=== PATIENT | male | born 1935 | race Caucasian/White ===

== ENCOUNTER 2019-07-20 11:07 | Inpatient (IN) | payer MEDICARE, OTHER ==
[~2019-07-20] VITALS: Ht 177.8 cm; Wt 71.5 kg
[2019-07-20] MEDS ORDERED: ASPIRIN 81 MG CHEW TAB PO ONE (11:45)
[2019-07-20 12:10] LABS: BASOPHILS # (AUTO) 0.1 (0.0-0.1); BASOPHILS % 0.3 % (0.0-1.0); EOSINOPHILS # (AUTO) 0.3 (0.0-0.4); EOSINOPHILS % 1.6 % (0.0-6.0); HEMATOCRIT 44.2 % (38.2-49.6); LYMPHOCYTES # (AUTO) 1.1 (1.0-3.2); LYMPHOCYTES % 5.1 % (18.0-39.1); MEAN CORPUSCULAR HEMOGLOBIN 30.9 pg (28-32); MEAN CORPUSCULAR HGB CONC 33.9 g/dL (31-35); MEAN CORPUSCULAR VOLUME 91.1 fL (81-99); MONOCYTES # (AUTO) 1.6 (0.2-0.8); MONOCYTES % 7.2 % (4.4-11.3); NEUTROPHILS # (AUTO) 18.4 (2.1-6.9); NEUTROPHILS % 85.3 % (38.7-80.0); PLATELET COUNT 149 x10e3/uL (140-360); RED BLOOD COUNT 4.85 x10e6/uL (4.3-5.7); RED CELL DISTRIBUTION WIDTH 13.6 % (11.7-14.4)
--- NOTE | 2019-07-20 12:26 | NUR ---
BLADDER SCAN PERFORMED, RESULTS ARE GREATER THAN 999 mL, ER MD aware and given order to change patients ernst catheter.
[2019-07-20 12:35] LABS: ALANINE AMINOTRANSFERASE 18 IU/L (0-55); ALBUMIN 3.5 g/dL (3.5-5.0); ALBUMIN/GLOBULIN RATIO 1.1 (0.8-2.0); ALKALINE PHOSPHATASE 63 IU/L (40-150); ANION GAP 14.9 mmol/L (8-16); BLOOD UREA NITROGEN 48 mg/dL (7-26); BUN/CREATININE RATIO 13 (6-25); CALCIUM 8.5 mg/dL (8.4-10.2); CARBON DIOXIDE 24 mmol/L (22-29); CHLORIDE 99 mmol/L (98-107); CREATINE KINASE 128 IU/L (30-200); CREATININE, SERUM 3.69 mg/dL (0.72-1.25); EST GLOMERULAR FILTRATION RATE 16 ML/MIN (60-); GLUCOSE 123 mg/dL (74-118); POTASSIUM 4.9 mmol/L (3.5-5.1); SODIUM 133 mmol/L (136-145)
[2019-07-20 13:11] LABS: BILIRUBIN,URINE NEGATIVE (NEGATIVE); CLARITY,URINE CLOUDY (CLEAR); COLOR,URINE YELLOW (YELLOW); KETONES,URINE NEGATIVE (NEGATIVE); LEUKOCYTE ESTERASE ,URINE LARGE (NEGATIVE); NITRITE,URINE POSITIVE (NEGATIVE); PROTEIN,URINE DIPSTICK 1+ (NEGATIVE); URINE UROBILINOGEN 0.2 mg/dL (0.2 - 1)
[2019-07-20 13:18] LABS: LIPASE 46 U/L (8-78)
--- NOTE | 2019-07-20 14:06 | NUR ---
Hernandez catheter bag drained again. Output 400 mL.
--- NOTE | 2019-07-20 14:13 | Diagnostic Imaging Report ---
EXAM: CT Abdomen and Pelvis WITHOUT intravenous contrast INDICATION: Diffuse abdominal pain COMPARISON: None. TECHNIQUE: Abdomen and pelvis were scanned utilizing a multidetector helical scanner from the lung base to the pubic symphysis without administration of IV contrast. Coronal and sagittal reformations were obtained. IV CONTRAST: None ORAL CONTRAST: Water COMPLICATIONS: None RADIATION DOSE: Total DLP: 381 mGy*cm Dose modulation, iterative reconstruction, and/or weight based adjustment of the mA/kV was utilized to reduce the radiation dose to as low as reasonably achievable. FINDINGS: LOWER THORAX: Moderate hiatal hernia. HEPATOBILIARY: No focal liver lesions. 1.7 cm calcified gallstone at the gallbladder neck. No CT evidence of cholecystitis. SPLEEN: No spinal megaly. 1.5 cm cystic lesion of the medial spleen. PANCREAS: No focal masses or ductal dilatation. ADRENALS: No adrenal nodules. KIDNEYS/URETERS: No hydronephrosis. 2 mm left lower pole nonobstructive renal calculus. Numerous bilateral renal cysts measure up to 5.3 cm on the right and 3.0 cm on the left. PELVIC ORGANS/BLADDER: Hernandez catheter in the bladder. PERITONEUM / RETROPERITONEUM: No free air or fluid. LYMPH NODES: No lymphadenopathy. VESSELS: Moderate atherosclerotic calcifications of the nonaneurysmal abdominal aorta and major branches. GI TRACT: Diverticulosis without CT evidence of diverticulitis. No abnormal bowel thickening. No bowel obstruction. BONES AND SOFT TISSUES: No acute osseous injury. No suspicious lytic or blastic lesions. IMPRESSION: Cholelithiasis without CT evidence of cholecystitis. Diverticulosis without CT evidence of diverticulitis. 2 mm left lower pole nonobstructive renal calculus. Numerous bilateral renal cysts. Signed by: Silas Ramos MD on 07/20/2019 2:10 PM
[2019-07-20] MEDS ORDERED: ONDANSETRON HCL INJ 2MG/ML 2ML 2 MG/ML VIAL IV PRN (15:00)
[2019-07-20] MEDS ORDERED: MORPHINE SULFATE 2 MG/ML SYR 1ML IV PRN (15:00)
[2019-07-20 15:04] LABS: BACTERIA,URINE MODERATE /HPF; WBC,URINE (MAN) >50 /HPF (0-5)
[2019-07-20] MEDS: PIPER-TAZ 3.375 GM 50 ML IV SCH ×2 (15:14→23:02)
--- NOTE | 2019-07-20 15:22 | NUR ---
ernst catheter drained. Output of 425.
[2019-07-20] MEDS ORDERED: MORPHINE SULFATE INJ 4 MG/ML INJ 1ML IV PRN (15:30)
--- OUTSIDE RECORDS SUMMARY | 2019-07-20 18:16 | XMS REPORT ---
Author Author [facility] t Organization [facility] Address Unknown Phone Unavailable Care Team Providers Care Tugboat Pilot Name Role Phone WILLIAM SPENSER Unavailable Unavailable MELLISSA SMITH Unavailable Unavailable Maranda SAUCEDO Unavailable Unavailable JOSE WORRELL Unavailable Unavailable WERO REBOLLEDO Unavailable Unavailable Problems This patient has no known problems. Allergies, Adverse Reactions, Alerts This patient has no known allergies or adverse reactions. Medications This patient has no known medications. Results Test Description Test Time Test Comments Text Results Atomic Results Result Comments CT ABDOMEN/PELVIS WO 2019-07-20 14:05:00 [facility] [address] [place] [id number] Patient Name: NATHALIA DELEON MR #: [id number] : 1935 Age/Sex: 84/M Req #: [id number] Adm Physician: Ordered by: SPENSER THOMAS DO Report #: [id number] Location: ER Room/Bed: Procedure: [id number] CT/CT ABDOMEN/PELVIS WO Exam Date: 07/20/19 Exam Time: 1330 REPORT STATUS: Signed EXAM: CT Abdomen and Pelvis WITHOUT intravenous contrast INDICATION: Diffuse abdominal pain COMPARISON: None. TECHNIQUE: Abdomen and pelvis were scanned utilizing a multidetector helical scanner from the lung base to the pubic symphysis without admi nistration of IV contrast. Coronal and sagittal reformations were obtained. IV CONTRAST: None ORAL CONTRAST: Water COMPLICATIONS: None RADIATION DOSE: Total DLP: 381 mGy*cm Dose modulation, iterative reconstruction, and/or weight based adjustment of the mA/kV was utilized to reduce the radiation dose to as low as reasonably achievable. FINDINGS: LOWER THORAX: Moderate hiatal hernia. HEPATOBILIARY: No focal liver lesions. 1.7 cm calcified gallstone at the gallbladder neck. No CT evidence of cholecystitis. SPLEEN: No spinal megaly. 1.5 cm cystic lesion of the medial spleen. PANCREAS: No focal masses or ductal dilatation. ADRENALS: No adrenal nodules. KIDNEYS/URETERS: No hydronephrosis. 2 mm left lower pole nonobstructive renal calculus. Numerous bilateral renal cysts measure up to 5.3 cm on the right and 3.0 cm on the left. PELVIC ORGANS/BLADDER: Hernandez catheter in the bladder. PERITONEUM / RETROPERITONEUM : No free air or fluid. LYMPH NODES: No lymphadenopathy. VESSELS: Moderate atherosclerotic calcifications of the nonaneurysmal abdominal aorta and major branches. GI TRACT: Diverticulosis without CT evidence of diverticulitis. No abnormal bowel thickening. No bowel obstruction. BONES AND SOFT TISSUES: No acute osseous injury. No suspicious lytic or blastic lesions. IMPRESSION: Cholelithiasis without CT evidence of cholecystitis. Diverticulosis without CT evidence of diverticulitis. 2 mm left lower pole nonobstructive renal calculus. Numerous bilateral renal cysts. Signed by: Mikey Ramos MD on 07/20/2019 2:10 PM Dictated By: MIKEY RAMOS MD 1410 Transcribed By: RACHEL on 07/20/19 1410 COPY TO: SPENSER THOMAS DO [facility] 2019-06-29 12:41:00 Glucose (test code = GLU) 134 mg/dl 75-110 BUN (test code = BUN) 22.0 mg/dl 6.0-17.0 Creatinine (test code = CREA) 1.4 mg/dl 0.4-1.2 Sodium (test code = NA) 138 mmol/l 137-145 Potassium (test code = K) 4.0 mmol/l 3.5-5.0 Chloride (test code = CL) 106 mmol/l 98-107 CO2 (test code = CO2) 27 mmol/l 22-30 Calcium (test code = CALC) 8.4 mg/dl 8.4-10.2 T Protein (test code = TP) 6.6 gm/dl 5.1-8.7 Albumin (test code = ALB) 3.6 gm/dl 3.5-4.6 A/G Ratio (test code = AGRAT) 1.2 % 1.1-2.2 AST (SGOT) (test code = AST) 11 U/L 11-36 ALT (SGPT) (test code = ALT) 20 U/L 11-40 Alkaline Phos (test code = ALKP) 59 U/L 47-114 Total Bilirubin (test code = TBIL) 0.4 mg/dl 0.2-1.2 Globulin (test code = GLOBU) 3.0 gm/dl 2.3-3.5 Calcium, Corrected (test code = CALCCORR) 8.7 mg/dl 8.4-10 .2 Various formulas exist for corrected serum calcium results, each yielding different values. This corrected result was based on the formula: Corrected Calcium = SerumCalcium + [0.8 * ( 4 - SerumAlbumin)] EGFR if (test code = EGFRAA) >60 mL/min/1.73m\\S \\2 EGFR if Non- (test code = EGFRNA) 51 mL/min/1.73 m\\S\\2 Estimated Glomerular Filtration Rate (eGFR) Reference Intervals Decision Points for 18 years and older and average body mass: >= 60 Does not exclude kidney disease. 30 - 59 Suggests moderate chronic kidney disease and indicates the need for further investigation including assessment of proteinuria and cardiovascular factors. < 30 Usually indicates a need for referral for assessment and management of chronic kidney failure. PRO-BNP(B-Type Natriuretic Peptide)2019-06-29 12:41:00* Test Item Value Reference Range Comments Pro-BNP(B-Peptide) (test code = PROBNP) 137 pg/ml 0-450 TROPONIN-I [id number] 12:41:00* Test Item Value Reference Range Comments Troponin-I (test code = TROP) <0.015 ng/ml 0.000-0.034 Th e 99th Percentile URL is 0.045 ng/mL for the Siemens Stephens Troponin I. The Joint Society of Cardiology/[place] [employer] (ESC/ACC) and the National Academy of Clinical Biochemistry Standards of Laboratory Practices (NACB) recommends that the diagnosis of AMI includes the presence of clinical history suggestive of Acute Coronary Syndrome (ACS) and a maximum concentration of cardiac troponin exceeding the 99th percentile of a normal reference population [upper reference limit (URL)] on at least one occasion during the first 24 hours after the clinical event. CBC WITH AUTO [id number] 11:53:00* Test Item Value Reference Range Comments WBC (test code = WBC) 8.25 10\\S\\3/ul 4.80-10.80 RBC (test code = RBC) 4.61 10\\S\\6/ul 4.70-6.10 Hemoglobin (test code = HGB) 14.3 gm/dl 14.0-18.0 Hematocrit (test code = HCT) 42.6 % 42.0-50.0 MCV (test code = MCV) 92.4 fL 80.0-94.0 MCH (test code = MCH) 31.0 pg 27.0-31.0 MCHC (test code = MCHC) 33.6 gm/dl 33.0-37.0 RDW (test code = RDWVC) 13.3 % 11.5-14.5 Platelet (test code = PLT) 167 10\\S\\3/ul 130-400 MPV (test code = MPV) 10.8 fL 7.4-10.4 "NOT MEASU RED" RESULTS ARE DISPLAYED WHEN THE INSTRUMENT HAS A SUPPRESSED OR UNREPORTABLE RESULT. THIS WILL MOST OFTEN HAPPEN WITH THE MPV WHEN THERE IS AN ABNORMAL PLATELET DISTRIBUTION DUE TO A CR ITICAL LOW VALUE OR PLATELET CLUMPING. THE RDW MAY BE SUPPRESSED IF THERE ARE MULTIPLE PEAKS PRESENT ON THE RBC HISTOGRAM. IN THIS CASE, A MANUAL REVIEW OF THE SLIDE WILL BE PERFORMED, AND RBC MORPHOLOGY WILL BE NOTED ON THE REPORT. NE% (test code = NE) 67.3 % 42.0-75.0 LY% (test code = LY) 18.9 % 13.0-42.0 MO% (test code = MO) 8.4 % 4.0-14.0 EO% (test code = EO) 4.2 % 1.0-5.0 BA% (test code = BA) 0.6 % 0.0-3.0 IG% (test code = IG%) 0.6 % 0.0-0.4 CULTURE, [id number] 11:05:00Specimen: Urine SpecimensCollected: 05/20/2019 11:22 Status: Final Last Updated: 05/24/2019 11:05 Culture Result (Final) (Final) No Growth After [address] ABDOMEN/PELVIS W/CONTRAST 2019-05-20 13:09:49EXAM: CT Abdomen and Pelvis WITH contrastINDICATION: Abdominal pain.COMPARISON: None.TECHNIQUE: Abdomen and pelvis were scanned utilizing a multidetector helicalscanner from the lung base to the pubic symphysis after administration of IVcontrast. Coronal and sagittal reformations were obtained. Routine protocol wasperformed. Scan was performed when during portal venous phase.IV CONTRAST: 80 cc of Isovue 300.ORAL CONTRAST: NoneRADIATION DOSE: Total DLP: 808 mGy*cmEstimated effective dose: (DLP x 0.015 x size factor) mSvCOMPLICATIONS: NoneFINDINGS:LINES and TUBES: None.LOWER THORAX: Moderate hiatal hernia. Coronary atherosclerosis.HEPATOBILIARY: No focal hepatic lesions. No biliary ductal dilation.GALLBLADDER: Cholelithiasis without evidence of cholecystitis.SPLEEN: No splenomegaly. Splenic cyst. Additional subcentimeter splenichypodensity is too small to characterize, but may represent a cyst.PANCREAS: No focal masses or ductal dilatation.ADRENALS: No adrenal nodulesKIDNEYS/URETERS: Kidneys enhance symmetrically. No hy dronephrosis. Multiplebilateral renal cysts. Additional bilateral subcentimeter renal hypodensitiesare too small to characterize, but likely represent cysts. In determinate 1.3 cmright mid pole renal cyst on series 2, image 45 ([address]: Abundant stool in the rectum, which is dilated, measuring up to 7.6cm. No ab normal distention, wall thickening, or evidence of bowel obstruction.Per clinica l history, the patient is status post appendectomy.PELVIC ORGANS/BLADDER: Hernandez catheter terminates in a decompressed bladder.LYMPH NODES: No lymphadenopathy.VE SSELS: Scattered mild atherosclerotic calcifications of the abdominal aortaand b ranch vessels.PERITONEUM / RETROPERITONEUM: No free air or fluid.BONES: No acute osseous abnormality. No suspicious lytic or blastic lesions.SOFT TISSUES: Status post bilateral inguinal hernia repair. Small fat-containingumbilical hernia.IM PRESSION:Abundant stool in the rectum, suggest clinical correlation for fecal im paction.No evidence of bowel obstruction.Multiple bilateral renal cysts and britni tional subcentimeter hypodensities,likely cysts. Indeterminate 1.3 cm right midp ole renal cyst, which may representa minimally complex cyst. Suggest nonemergent followup renal ultrasound forfurther evaluation.Cholelithiasis without evidence of cholecystitis.This final report was electronically signed by Dr Joseline Stanley MD 05/20/2019 1:03PMDictated By: OMAR STANLEYate: 05/20/2019 13:03URINALYSIS WITH [id number] 11:46:00* Test Item Value Reference Range Comments Color (test code = UCOLR) Lt. Yellow Clarity (test code = UCLAR) Clear Glucose (test code = UGLUC) NEGATIVE NEGATIVE Bilirubin (test code = UBILI) NEGATIVE NEGATIVE Ketones (test code = UKET) NEGATIVE NEGATIVE Specific [place] (test code = USPGR) 1.010 1.005-1.030 Blood (test code = UBLD) NEGATIVE NEGATIVE PH (test code = UPH) 6.5 4.5-8.0 Protein (test code = UPROT) NEGATIVE NEGATIVE Urobilinogen (test code = U UROB) 0.2 >0.2 Nitrite (test code = UNITR) NEGATIVE NEGATIVE Leukocyte Esterase (test code = ULEUK) NEGATIVE NEGATIVE WBC (test code = WBCUR) 0-1 0-5 RBC (test code = RBCUR) 0-1 0-5 Epithial Cells (test code = U EPI) 0-10 0-10 Bacteria (test code = UBACT) Trace None Seen,Trace [id number] 11:27:00* Test Item Value Reference Range Comments Glucose (test code = GLU) 114 mg/dl 75-110 BUN (test code = BUN) 20.0 mg/dl 6.0-17.0 Creatinine (test code = CREA) 1.3 mg/dl 0.4-1.2 Sodium (test code = NA) 138 mmol/l 137-145 Potassium (test code = K) 4.6 mmol/l 3.5-5.0 Chloride (test code = CL) 105 mmol/l 98-107 CO2 (test code = CO2) 29 mmol/l 22-30 Calcium (test code = CALC) 9.0 mg/dl 8.4-10.2 T Protein (test code = TP) 7.7 gm/dl 5.1-8.7 Albumin (test code = ALB) 3.9 gm/dl 3.5-4.6 A/G Ratio (test code = AGRAT) 1.0 % 1.1-2.2 AST (SGOT) (test code = AST) 15 U/L 11-36 ALT (SGPT) (test code = ALT) 21 U/L 11-40 Alkaline Phos (test code = ALKP) 60 U/L 47-114 Total Bilirubin (test code = TBIL) 0.5 mg/dl 0.2-1.2 Globulin (test code = GLOBU) 3.8 gm/dl 2.3-3.5 Calcium, Corrected (test code = CALCCORR) 9.1 mg/dl 8.4-10 .2 Various formulas exist for corrected serum calcium results, each yielding different values. This corrected result was based on the formula: Corrected Calcium = SerumCalcium + [0.8 * ( 4 - SerumAlbumin)] EGFR if (test code = EGFRAA) >60 mL/min/1.73m\\S \\2 EGFR if Non- (test code = EGFRNA) 56 mL/min/1.73 m\\S\\2 Estimated Glomerular Filtration Rate (eGFR) Reference Intervals Decision Points for 18 years and older and average body mass: >= 60 Does not exclude kidney disease. 30 - 59 Suggests moderate chronic kidney disease and indicates the need for further investigation including assessment of proteinuria and cardiovascular factors. < 30 Usually indicates a need for referral for assessment and management of chronic kidney failure. CBC WITH AUTO [id number] 11:14:00* Test Item Value Reference Range Comments WBC (test code = WBC) 12.62 10\\S\\3/ul 4.80-10.80 RBC (test code = RBC) 4.97 10\\S\\6/ul 4.70-6.10 Hemoglobin (test code = HGB) 15.6 gm/dl 14.0-18.0 Hematocrit (test code = HCT) 46.2 % 42.0-50.0 MCV (test code = MCV) 93.0 fL 80.0-94.0 MCH (test code = MCH) 31.4 pg 27.0-31.0 MCHC (test code = MCHC) 33.8 gm/dl 33.0-37.0 RDW (test code = RDWVC) 13.2 % 11.5-14.5 Platelet (test code = PLT) 165 10\\S\\3/ul 130-400 MPV (test code = MPV) 10.6 fL 7.4-10.4 "NOT MEASU RED" RESULTS ARE DISPLAYED WHEN THE INSTRUMENT HAS A SUPPRESSED OR UNREPORTABLE RESULT. THIS WILL MOST OFTEN HAPPEN WITH THE MPV WHEN THERE IS AN ABNORMAL PLATELET DISTRIBUTION DUE TO A CR ITICAL LOW VALUE OR PLATELET CLUMPING. THE RDW MAY BE SUPPRESSED IF THERE ARE MULTIPLE PEAKS PRESENT ON THE RBC HISTOGRAM. IN THIS CASE, A MANUAL REVIEW OF THE SLIDE WILL BE PERFORMED, AND RBC MORPHOLOGY WILL BE NOTED ON THE REPORT. NE% (test code = NE) 74.9 % 42.0-75.0 LY% (test code = LY) 13.7 % 13.0-42.0 MO% (test code = MO) 7.9 % 4.0-14.0 EO% (test code = EO) 2.4 % 1.0-5.0 BA% (test code = BA) 0.5 % 0.0-3.0 IG% (test code = IG%) 0.6 % 0.0-0.4 US VEINS BILAT LEGS [id number] 17:18:10Procedure: US VEINS BILAT LEGS DopplerOrder Date: 09/26/2018 3:15 PMOrdering Provider: АНДРЕЙ Alexisinical Indication: Bilateral lower extremity swelling and painComparison: NoneTechnique: Multiple real-time grayscale sonographic images of the bilaterallower extremity veins were obtained with color flow Doppler. Examination wasperformed with documentation of imaging, spectral analysis, and color flow.Findings:Normal compressibility and augmentation of flow is seen wit hin the commonfemoral, saphenous, femoral, and popliteal veins. No evidence of e chogenicthrombus. No soft tissue abnormality identified.Impression:No evidence o f deep venous thrombosis within the bilateral lower extremities.This final repor t was electronically signed by Dr Live Zurita MD 09/26/20185:11 PMDictated By : LIVE ZURITADate: 09/26/2018 17:11US VEINS LEG UNIL [id number] 16:23:52Left lower extremity venous Doppler ultrasound:Exam Date: 06/28/2017Ordering Physician: Wero MartinessClinical Indication: Left lower extremity edemaDuplex scanning, spectral analysis and real-time grayscale and color Dopplerimaging of the left lower extremity venous system was performed.The deep veins of the left lower extremity were compressible. Spontaneous phasicflow and augmentation was noted. No intraluminal thrombus was visualized. Thevisualized greater saphenous vein appear patent. No popliteal cyst isidentified. Soft tissue edema of the leg is incidentally noted.Impression: No evidence of DVT.This final report was electronically signed by Dr Peyman Hollis MD 06/28/20174:17 PMDictated By: PEYMAN HOLLISDate: 06/28/2017 16:23
--- OUTSIDE RECORDS SUMMARY | 2019-07-20 18:16 | XMS REPORT | Continuity of Care Document ---
Author Author [facility], [place], operated [facility] Address [address] [place] [address] Allergies and Intolerances Code Code System Allergy Substance Type Reaction Severity Start Da te End Date Status RXNorm Sulfa(Sulfonamide Antibiotics) Drug allergy (disorder) Unknown Active Medications RxNorm Medication Dose Route Instructions Start Date End Date Stat 1191 Aspirin 81 mg oral orally every day Active 229283 Metformin hydrochloride 500 MG Oral Tablet 500 mg oral orally 2 times per day Active 788572 Omeprazole 20 MG Delayed Release Oral Tablet 20 mg or al orally every day Active 337225 POLYETHYLENE GLYCOL 3350 98762 MG Powder for Oral Solu tion 17 g oral orally daily as needed. (as needed for constipation) Active Synthroid Oral 125 mcg oral orally every day Active 912791 Tamsulosin hydrochloride 0.4 MG Oral Capsule 0.4 mg oral orally daily Active 45379 Temazepam 0.5 milligrams oral orally two times daily Active Problems Code Code System Problem Name Start Date End Date Status 59545211 SNOMED-CT Orthostatic hypotension 06/29/2019 A ctive 019167920 SNOMED-CT Peripheral edema 09/26/2018 Active 194921756 SNOMED-CT Deep laceration of finger 08/26/2016 U Active 57015344 SNOMED-CT Diabetes mellitus type 2 U Active 78213322 SNOMED-CT Hypothyroidism U Active 23371211 SNOMED-CT Anxiety U Active 33353754 SNOMED-CT Carcinoma in situ of skin U Active 25387213 SNOMED-CT Depressive disorder U Activ e Procedures Code Code System Procedure Date 08591407 SNOMED CT [place]end[place] 25594182 SNOMED CT Hernia repair U EXCISION OF SQUAMOUS CELL CARCIN BRENDAN 2016 Results Laboratory Results Order: CBC PLATELET AUTO DIFF Specimen Source: BLOOD Body Site: LOINC Test Result Flag Range Units Date 65642-7 1Leukocytes^^corrected for n ucleated erythrocytes:NCnc:Pt:Bld:Qn:Automated count 8.25 4.80-10.80 10^3/ul 06/29/2019 11:47 789-8 1Erythrocytes:NCnc:Pt:Bld:Qn:Automated count 4.61 L 4.70-6.10 10^6/ul 06/29/2019 11:47 718-7 1Hemoglobin:MCnc:Pt:Bld:Qn 14.3 14.0-18.0 gm/ dl 06/29/2019 11:47 4544-3 1Hematocrit:VFr:Pt:Bld:Qn:Automated count 42.6 42.0-50.0 % 06/29/2019 11:47 787-2 1Erythrocyte mean corpuscular volume:Ent Vol:Pt:RBC:Qn:Automated count 92.4 80.0-94.0 fL 06/29/2019 11:47 785-6 1Erythrocyte mean corpuscula r hemoglobin:EntMass:Pt:RBC:Qn:Automated count 31.0 27.0-31.0 pg 06/29/2019 11:4 7 786-4 1Erythrocyte mean corpuscula r hemoglobin concentration:MCnc:Pt:RBC:Qn:Automated count 33.6 33.0-37.0 gm/dl 06/29/2019 11:47 788-0 1Erythrocyte distribution width:Ratio:Pt:RBC:Qn:Automa tena count 13.3 11.5-14.5 % 06/29/2019 11:47 777-3 1Platelets:NCnc:Pt:Bld:Qn:Automated count 167 130-400 10^3/ul 06/29/2019 11:47 05647-5 1Platelet mean volume:EntVol:Pt:Bld:Qn:Automated count 10. 8 A 7.4-10.4 fL 06/29/2019 11:47 Note: "NOT MEASURED" RESULTS ARE DISPLAYED WHEN THE INSTRUMENT HAS A SUPPRESSED OR UNREPORTABLE RESULT. THIS WILL MOST OFTEN HAPPEN WITH THE MPV WHEN THERE IS AN ABNORMAL PLATELET DISTRIBUTION DUE TO A CRITICAL LOW VALUE OR PLATELET CLUMPING. THE RDW MAY BE SUPPRESSED IF THERE ARE MULTIPLE PEAKS PRESENT ON THE RBC HISTOGRAM. IN THIS CASE, A MANUAL REVIEW OF THE SLIDE WILL BE PERFORMED, AND RBC MORPHOLOGY WILL BE NOTED ON THE REPORT. 770-8 1Neutrophils/100 leukocytes:NFr:Pt:Bld:Qn:Automated co unt 67.3 42.0-75.0 % 06/29/2019 11:47 736-9 1Lymphocytes/100 leukocytes:NFr:Pt:Bld:Qn:Automated co unt 18.9 13.0-42.0 % 06/29/2019 11:47 5905-5 1Monocytes/100 leukocytes:NFr:Pt:Bld:Qn:Automated count 8.4 4.0-14.0 % 06/29/2019 11:47 713-8 1Eosinophils/100 leukocytes:NFr:Pt:Bld:Qn:Automated count 4. 2 1.0-5.0 % 06/29/2019 11:47 706-2 1Basophils/100 leukocytes:NFr:Pt:Bld:Qn:Automated count 0.6 0.0-3.0 % 06/29/2019 11:47 1IG% 0.6 H 0.0-0.4 % 06/29/2019 11:47 * Performing Lab Footnotes:* [facility] - [id number] [place] [address] DIA - : DIRECTOR FLAVIO TAYLOR Order: CMP COMPREHENSIVE METABOLIC PANEL Specimen Source: BLOOD Body Site: LOINC Test Result Flag Range Units Date 1Glucose 134 H 75-110 mg/dl 06/29/2019 11:47 1BUN 22.0 H 6.0-17.0 mg/dl 06/29/2019 11:47 1Creatinine 1.4 H 0.4-1.2 mg/dl 06/29/19 20 11:47 1Sodium 138 137-145 mmol/l 06/29/2019 11:47 1Potassium 4.0 3.5-5.0 mmol/l 0 11:47 1Chloride 106 98-107 mmol/l 06/29/2019 11:47 1CO2 27 22-30 mmol/l 06/29/2019 11:47 1Calcium 8.4 8.4-10.2 mg/dl 06/29/2019 11:47 1T Protein 6.6 5.1-8.7 gm/dl 0 11:47 1Albumin 3.6 3.5-4.6 gm/dl 06/29/2019 11:47 1A/G Ratio 1.2 1.1-2.2 % 0 11:47 1AST (SGOT) 11 11-36 U/L 06/29/19 20 11:47 1ALT (SGPT) 20 11-40 U/L 06/29/19 20 11:47 1Alkaline Phos 59 47-114 U/L 06/28 11:47 1Total Bilirubin 0.4 0.2-1.2 mg/dl 11:47 1Globulin 3.0 2.3-3.5 gm/dl 06/29/2019 11:47 1Calcium, Corrected 8.7 8.4-10.2 mg/dl 06/29/2019 11:47 Note: Various formulas exist for corrected serum calcium results, each yielding different values. This corrected result was based on the formula: Corrected Calcium = SerumCalcium + [0.8 * ( 4 - SerumAlbumin)] 1EGFR if >60 mL/m in/1.73m^2 06/29/2019 11:47 1EGFR if Non- 51 mL/min/1.73m^2 06/29/2019 11:47 Note: Estimated Glomerular Filtration Rate (eGFR) Reference Intervals Decision Points for 18 years and older and average body mass: >= 60 Does not exclude kidney disease. 30 - 59 Suggests moderate chronic kidney disease and indicates the need for further investigation including assessment of proteinuria and cardiovascular factors. < 30 Usually indicates a need for referral for assessment and management of chronic kidney failure. * Performing Lab Footnotes:* [facility] - [id number] [place] [address] DIA Zurita MD: DIRECTOR FLAVIO TAYLOR Order: PRO BNP B - NATRIURETIC PEPTIDE Specimen Source: BLOOD Body Site: LOINC Test Result Flag Range Units Date 1Pro-BNP(B-Peptide) 137 0-450 pg/ml 06/29/2019 11:47 * Performing Lab Footnotes:* [facility] [id number] [place] [address] DIA Zurita MD: DIRECTOR FLAVIO TAYLOR Order: TROPONIN I QUANTITATIVE Specimen Source: BLOOD Body Site: LOINC Test Result Flag Range Units Date 1Troponin-I <0.015 0.000-0.034 ng/ml 2019 11:47 Note: The 99th Percentile URL is 0.045 ng/mL for the Siemens Shirley Troponin I. The Joint Society of Cardiology/[place] [employer] (ESC/ACC) and the National [...] first 24 hours after the clinical event. * Performing Lab Footnotes:* [facility] [id number] [place] [address] DIA Zurita MD: DIRECTOR FLAVIO TAYLOR Social History Code Code System Social History Observation Description D ates Observed 163920944 SNOMED CT Current Smoking Status Never smoker UNK AdministrativeGender Sex Assigned At Unknown Vital Signs Code Code System Vitals Value Date 8865-8 LOINC Pulse Rate 69 {beats}/min 06/29/2019 9279-1 LOINC Respiratory Rate 19 /min 06/29/2019 8480-6 LOINC BP Systolic 108 mm[Hg] 06/29/2019 8462-4 LOINC BP Diastolic 55 mm[Hg] 06/29/2019 8310-5 LOINC Body Temperature 98 [degF] 06/29/2019 30951-7 LOINC O2% BldC Oximetry 97 % 06/29/2019 8302-2 LOINC Height 70 [in_i] 06/29/2019 69408-0 LOINC Weight 150 [lb_av] 06/29/2019 3140-1 LOINC Body surface area Derived from formula 1. 85 m2 06/29/2019 36699-2 LOINC BMI (Body Mass Index) 21.7 kg/m2 2019 Goals Section * No data in the system Health Concerns * No data in the system Encounter Diagnosis Date Code Code System Diagnosis Status I95.1 ICD10 ORTHOSTATIC HYPOTENSION Acti ve Advance Directives Patient HAS Living Will Directive Type Effective Date Forest Supervisor Notes Supporting Document Name Address Phone No Directive Type specified 05/20/2019 3:50:48 PM Not Specified Not S pecified Not Specified None No Patient HAS Living Will Directive Type Effective Date Forest Supervisor Notes Supporting Document Name Address Phone No Directive Type specified 09/26/2018 5:06:00 PM Not Specified Not Specified Not Specified None No Patient HAS Living Will Directive Type Effective Date Forest Supervisor Notes Supporting Document Name Address Phone No Directive Type specified 05/20/2015 11:53:42 AM Not Specified Not Specified Not Specified None No PT HAS NEITHER Directive Type Effective Date Forest Supervisor Notes Supporting Document Name Address Phone No Directive Type specified 05/21/2012 9:27:07 PM Not Specified Not S pecified Not Specified None No Family History * Family History Unknown Functional Status * No data in the system Immunizations Vaccine Code Code System Vaccine Name Date Status 88 CVX influenza virus vaccine, NOS Completed 109 CVX pneumococcal vaccine, NOS Co mpleted Medical Equipment * No data in the system Mental Status * No data in the system Assessment and Plan Assessments * No data in the system Plan Of Treatment * No data in the system Pending Tests * No data in the system Hospital Discharge Instructions * No data in the system Reason for Visit Reason for Visit Syncope / Pre-syncope
--- OUTSIDE RECORDS SUMMARY | 2019-07-20 18:16 | XMS REPORT | Continuity of Care Document ---
Author Author [facility] Address [address] [place] [address] Allergies and Intolerances Code Code System Allergy Substance Type Reaction Severity Start Da te End Date Status RXNorm Sulfa(Sulfonamide Antibiotics) Drug allergy (disorder) Unknown Active Medications RxNorm Medication Dose Route Instructions Start Date End Date Stat 1191 Aspirin 81 mg oral orally every day Active 974055 Metformin hydrochloride 500 MG Oral Tablet 500 mg oral orally 2 times per day Active 603560 Omeprazole 20 MG Delayed Release Oral Tablet 20 mg or al orally every day Active 837756 POLYETHYLENE GLYCOL 3350 00643 MG Powder for Oral Solu tion 17 g oral orally daily as needed. (as needed for constipation) Active Synthroid Oral 125 mcg oral orally every day Active 854584 Tamsulosin hydrochloride 0.4 MG Oral Capsule 0.4 mg oral orally daily Active 98477 Temazepam 0.5 milligrams oral orally two times daily Active Problems Code Code System Problem Name Start Date End Date Status 477929176 SNOMED-CT Peripheral edema 09/26/2018 Active 894643180 SNOMED-CT Deep laceration of finger 08/26/2016 U Active 18687480 SNOMED-CT Diabetes mellitus type 2 U Active 41553643 SNOMED-CT Hypothyroidism U Active 37198936 SNOMED-CT Anxiety U Active 03152415 SNOMED-CT Carcinoma in situ of skin U Active 09963762 SNOMED-CT Depressive disorder U Activ e Procedures Code Code System Procedure Date 92550622 SNOMED CT [place]endectomy [place] 89785590 SNOMED [address] Hernia repair U EXCISION OF SQUAMOUS CELL CARCIN BRENDAN 2016 Results * No data in the system Social History Code Code System Social History Observation Description D ates Observed Current Smoking Status Unknown if ever sm oked UNK AdministrativeGender Sex Assigned At Unknown Vital Signs * No data in the system Goals Section * No data in the system Health Concerns * No data in the system Encounter Diagnosis* No data in the system Advance Directives Patient HAS Living Will Directive Type Effective Date Color Adviser Notes Supporting Document Name Address Phone No Directive Type specified 05/20/2019 3:50:48 PM Not Specified Not S pecified Not Specified None No Patient HAS Living Will Directive Type Effective Date Color Adviser Notes Supporting Document Name Address Phone No Directive Type specified 09/26/2018 5:06:00 PM Not Specified Not Specified Not Specified None No Patient HAS Living Will Directive Type Effective Date Color Adviser Notes Supporting Document Name Address Phone No Directive Type specified 05/20/2015 11:53:42 AM Not Specified Not Specified Not Specified None No PT HAS NEITHER Directive Type Effective Date Color Adviser Notes Supporting Document Name Address Phone No [...] system Reason for Visit Reason for Visit OP TESTING
--- OUTSIDE RECORDS SUMMARY | 2019-07-20 18:16 | XMS REPORT | Continuity of Care Document ---
Author Author [facility] Address [address] [place] [address] Allergies and Intolerances Code Code System Allergy Substance Type Reaction Severity Start Da te End Date Status RXNorm Sulfa(Sulfonamide Antibiotics) Drug allergy (disorder) Unknown Active Medications RxNorm Medication Dose Route Instructions Start Date End Date Stat us 1191 Aspirin 81 mg oral orally every day Active 610904 Metformin hydrochloride 500 MG Oral Tablet 500 mg oral orally 2 times per day Active 763522 Omeprazole 20 MG Delayed Release Oral Tablet 20 mg or al orally every day Active 279861 POLYETHYLENE GLYCOL 3350 62407 MG Powder for Oral Solu tion 17 g oral orally daily as needed. (as needed for constipation) Active Synthroid Oral 125 mcg oral orally every day Active 093935 Tamsulosin hydrochloride 0.4 MG Oral Capsule 0.4 mg oral orally daily Active 62892 Temazepam 0.5 milligrams oral orally two times daily Active Problems Code Code System Problem Name Start Date End Date Status 037693824 SNOMED-CT Peripheral edema 09/26/2018 Active 545150220 SNOMED-CT Deep laceration of finger 08/26/2016 U Active 65996169 SNOMED-CT Diabetes mellitus type 2 U Active 74848799 SNOMED-CT Hypothyroidism U Active 16567608 SNOMED-CT Anxiety U Active 21997919 SNOMED-CT Carcinoma in situ of skin U Active 67472088 SNOMED-CT Depressive disorder U Activ e Procedures Code Code System Procedure Date 21290440 SNOMED CT [place]endectomy [place] 72436165 SNOMED CT Hernia repair U EXCISION OF SQUAMOUS CELL CARCIN BRENDAN 2016 CT ABDOMEN/PELVIS W/CONTRAST 09/2019 Results Laboratory Results Order: UA URINALYSIS WITH MICROSCOPY Specimen Source: URINE SPECIMENS Body Site: LOINC Test Result Flag Range Units Date 5778 1Color:Type:Pt:Urine:Nom Lt. Yellow 05/20/2019 11:22 5767-9 1Appearance:Aper:Pt:Urine:Nom Clear 05/20/2019 11:22 2349-9 1Glucose:ACnc:Pt:Urine:Ord NEGATIVE NEGATIVE 05/20/2019 11:22 5770-3 1Bilirubin:ACnc:Pt:Urine:Ord:Test strip NEGATIVE NEGATIVE 05/20/2019 11:22 2514-8 1Ketones:ACnc:Pt:Urine:Ord:Test strip NEGATIVE NE GATIVE 05/20/2019 11:22 5811-5 1Specific gravity:Rden:Pt:Urine:Qn:Test strip 1.010 A 1.005-1.030 05/20/2019 11:22 5794-3 1Hemoglobin:ACnc:Pt:Urine:Ord:Test strip NEGATIVE NEGATIVE 05/20/2019 11:22 5803-2 1pH:LsCnc:Pt:Urine:Qn:Test strip 6.5 A 4.5-8.0 05/20/2019 11:22 10865-6 1Protein:ACnc:Pt:Urine:Ord:Test strip NEGATIVE NE GATIVE 05/20/2019 11:22 5818-0 1Urobilinogen:ACnc:Pt:Urine:Ord:Test strip 0.2 0.2 05/20/2019 11:22 5802-4 1Nitrite:ACnc:Pt:Urine:Ord:Test strip NEGATIVE NE GATIVE 05/20/2019 11:22 5799-2 1Leukocyte esterase:ACnc:Pt:Urine:Ord:Test strip NEGATIVE NEGATIVE 05/20/2019 11:22 5821-4 1Leukocytes:Naric:Pt:Urine sed:Qn:Microscopy.light.HPF 0-1 A 0-5 05/20/2019 11:22 33147-3 1Erythrocytes:Naric:Pt:Urine sed:Qn:Microscopy.light.HPF 0-1 A 0-5 05/20/2019 11:22 33483-1 1Epithelial cells.squamous:Naric:Pt:Urin e sed:Qn:Microscopy.light.HPF 0-10 0-10 05/20/2019 11:22 5769-5 1Bacteria:Naric:Pt:Urine sed:Qn:Microscopy.light.HPF T race None Seen,Trace 05/20/2019 11:22 * Performing Lab Footnotes:* [facility] NAM[facility] - [id number] - [address] [facility] [address] [place], [place] [id number] [place] [address] - MD: DIRECTOR FLAVIO TAYLOR Order: CBC PLATELET AUTO DIFF Specimen Source: BLOOD Body Site: LOINC Test Result Flag Range Units Date 43620-8 1Leukocytes^^corrected for n ucleated erythrocytes:NCnc:Pt:Bld:Qn:Automated count 12.62 H 4.80-10.80 10^3/ul 05/20/2019 11:08 789-8 1Erythrocytes:NCnc:Pt:Bld:Qn:Automated count 4.97 4.70-6.10 10^6/ul 05/20/2019 11:08 718-7 1Hemoglobin:MCnc:Pt:Bld:Qn 15.6 14.0-18.0 gm/ dl 05/20/2019 11:08 4544-3 1Hematocrit:VFr:Pt:Bld:Qn:Automated count 46.2 42.0-50.0 % 05/20/2019 11:08 787-2 1Erythrocyte mean corpuscular volume:Ent Vol:Pt:RBC:Qn:Automated count 93.0 80.0-94.0 fL 05/20/2019 11:08 785-6 1Erythrocyte mean corpuscula r hemoglobin:EntMass:Pt:RBC:Qn:Automated count 31.4 H 27.0-31.0 pg 05/20/2019 11:0 8 786-4 1Erythrocyte mean corpuscula r hemoglobin concentration:MCnc:Pt:RBC:Qn:Automated count 33.8 33.0-37.0 gm/dl 05/20/2019 11:08 788-0 1Erythrocyte distribution width:Ratio:Pt:RBC:Qn:Automa tena count 13.2 11.5-14.5 % 05/20/2019 11:08 777-3 1Platelets:NCnc:Pt:Bld:Qn:Automated count 165 130-400 10^3/ul 05/20/2019 11:08 79850-4 1Platelet mean volume:EntVol:Pt:Bld:Qn:Automated count 10. 6 A 7.4-10.4 fL 05/20/2019 11:08 Note: "NOT MEASURED" RESULTS ARE DISPLAYED WHEN [...] THE REPORT. 770-8 1Neutrophils/100 leukocytes:NFr:Pt:Bld:Qn:Automated co unt 74.9 42.0-75.0 % 05/20/2019 11:08 736-9 1Lymphocytes/100 leukocytes:NFr:Pt:Bld:Qn:Automated co unt 13.7 13.0-42.0 % 05/20/2019 11:08 5905-5 1Monocytes/100 leukocytes:NFr:Pt:Bld:Qn:Automated count 7.9 4.0-14.0 % 05/20/2019 11:08 713-8 1Eosinophils/100 leukocytes:NFr:Pt:Bld:Qn:Automated count 2. 4 1.0-5.0 % 05/20/2019 11:08 706-2 1Basophils/100 leukocytes:NFr:Pt:Bld:Qn:Automated count 0.5 0.0-3.0 % 05/20/2019 11:08 1IG% 0.6 H 0.0-0.4 % 05/20/2019 11:08 * Performing Lab Footnotes:* [facility]MERLY NAMED [facility] - [id number] - [facility] [address] - : DIRECTOR FLAVIO TAYLOR Order: CMP COMPREHENSIVE METABOLIC PANEL Specimen Source: BLOOD Body Site: [facility] Test Result Flag Range Units Date 1Glucose 114 H 75-110 mg/dl 05/20/2019 11:08 1BUN 20.0 H 6.0-17.0 mg/dl 05/20/2019 11:08 1Creatinine 1.3 H 0.4-1.2 mg/dl 05/20/19 20 11:08 1Sodium 138 137-145 mmol/l 05/20/2019 11:08 1Potassium 4.6 3.5-5.0 mmol/l 0 11:08 1Chloride 105 98-107 mmol/l 05/20/2019 11:08 1CO2 29 22-30 mmol/l 05/20/2019 11:08 1Calcium 9.0 8.4-10.2 mg/dl 05/20/2019 11:08 1T Protein 7.7 5.1-8.7 gm/dl 0 11:08 1Albumin 3.9 3.5-4.6 gm/dl 05/20/2019 11:08 1A/G Ratio 1.0 L 1.1-2.2 % 0 11:08 1AST (SGOT) 15 11-36 U/L 05/20/19 20 11:08 1ALT (SGPT) 21 11-40 U/L 05/20/19 20 11:08 1Alkaline Phos 60 47-114 U/L 05/19 11:08 1Total Bilirubin 0.5 0.2-1.2 mg/dl 09/2019 11:08 1Globulin 3.8 H 2.3-3.5 gm/dl 05/20/2019 11:08 1Calcium, Corrected 9.1 8.4-10.2 mg/dl 05/20/2019 11:08 Note: Various formulas exist for corrected serum calcium results, each yielding different values. This corrected result was based on the formula: Corrected Calcium = SerumCalcium + [0.8 * ( 4 - SerumAlbumin)] 1EGFR if >60 mL/m in/1.73m^2 05/20/2019 11:08 1EGFR if Non- 56 mL/min/1.73m^2 05/20/2019 11:08 Note: Estimated Glomerular Filtration Rate (eGFR) Reference [...] chronic kidney failure. * Performing Lab Footnotes:* [facility] NAMED [facility] - [id number] - [address] [place] [address] DIA - MD: DIRECTOR FLAVIO MC Radiology Results Order: CT ABDOMEN/PELVIS W/CONTRAST* Exam Completion Date:05/20/2019 11:15 EXAM: CT Abdomen and Pelvis WITH contrast INDICATION: Abdominal pain. CO MPARISON: None. TECHNIQUE: Abdomen and pelvis were scanned utilizing a multid etector helical scanner from the lung base to the pubic symphysis after adminis tration of IV contrast. Coronal and sagittal reformations were obtained. Routin e protocol was performed. Scan was performed when during portal venous phase. IV CONTRAST: 80 cc of Isovue 300. ORAL CONTRAST: None RADIATION DOSE: Total DLP: 808 mGy*cm Estimated effec tive dose: (DLP x 0.015 x size factor) mSv COMPLICATIONS: None F INDINGS: LINES and TUBES: None. LOWER THORAX: Moderate hiatal hernia. Cor onary atherosclerosis. HEPATOBILIARY: No focal hepatic lesions. No bilia ry ductal dilation. GALLBLADDER: Cholelithiasis without evidence of cholecys titis. SPLEEN: No splenomegaly. Splenic cyst. Additional subcentimeter spleni c hypodensity is too small to characterize, but may represent a cyst. PANCRE : No focal masses or ductal dilatation. ADRENALS: No adrenal nodules KIDNEYS/URETERS: Kidneys enhance symmetrically. No hydronephrosis. Multiple bilateral renal cysts. Additional bilateral subcentimeter renal hypodensities are too small to characterize, but likely represent cysts. Indeterminate 1.3 cm right mid pole renal cyst on series 2, image 45 (28 HU). GI TRACT: Abundant stool in the rectum, which is dilated, measuring up to 7.6 cm. No abnormal dis tention, wall thickening, or evidence of bowel obstruction. Per clinical histo ry, the patient is status post appendectomy. PELVIC ORGANS/BLADDER: Hernandez cat heter terminates in a decompressed bladder. LYMPH NODES: No lymphadenopathy. VESSELS: Scattered mild atherosclerotic calcifications of the abdominal aorta and branch vessels. PERITONEUM / RETROPERITONEUM: No free air or fluid. BONES: No acute osseous abnormality. No suspicious lytic or blastic lesions. SOFT TISSUES: Status post bilateral inguinal hernia repair. Small fat-containing umbilical hernia. IMPRESSION: Abundant stool in the rectum, suggest clini kellee correlation for fecal impaction. No evidence of bowel obstruction. Multi ple bilateral renal cysts and additional subcentimeter hypodensities, likely cy sts. Indeterminate 1.3 cm right midpole renal cyst, which may represent a minim ally complex cyst. Suggest nonemergent followup renal ultrasound for further ev aluation. Cholelithiasis without evidence of cholecystitis. This final rep ort was electronically signed by Dr Salty Stanley MD 05/20/2019 1:03 PM Dictated By: SALTY STANLEY Date: 05/20/2019 13:03 Social History Code Code System Social History Observation Description D ates Observed 124714537 SNOMED CT Current Smoking Status Current every day smoker UNK AdministrativeGender Sex Assigned At Unknown Vital Signs Code Code System Vitals Value Date 8310-5 LOINC Body Temperature 97.9 [degF] 05/20/2019 8865-8 LOINC Pulse Rate 63 {beats}/min 05/20/2019 9279-1 LOINC Respiratory Rate 19 /min 05/20/2019 48336-4 LOINC O2% BldC Oximetry 99 % 05/20/2019 8480-6 LOINC BP Systolic 159 mm[Hg] 05/20/2019 8462-4 LOINC BP Diastolic 90 mm[Hg] 05/20/2019 8302-2 LOINC Height 71 [in_i] 05/20/2019 62342-0 LOINC Weight 150 kg 05/20/2019 3140-1 LOINC Body surface area Derived from formula 2. 61 m2 05/20/2019 92882-4 LOINC BMI (Body Mass Index) 46.2 kg/m2 2019 Goals Section * No data in the system Health Concerns * No data in the system Encounter Diagnosis Date Code Code System Diagnosis Status N40.1 ICD10 BENIGN PROSTATIC HYPERPLASIA W/LUTS Active Advance Directives Patient HAS Living Will Directive Type Effective Date Technical Training Instructor Notes Supporting Document Name Address Phone No Directive Type specified 05/20/2019 3:50:48 PM Not Specified Not S pecified Not Specified None No Patient HAS Living Will Directive Type Effective Date Technical Training Instructor Notes Supporting Document Name Address Phone No Directive Type specified 09/26/2018 5:06:00 PM Not Specified Not Specified Not Specified None No Patient HAS Living Will Directive Type Effective Date Technical Training Instructor Notes Supporting Document Name Address Phone No Directive Type specified 05/20/2015 11:53:42 AM Not Specified Not Specified Not Specified None No PT HAS NEITHER Directive Type Effective Date Technical Training Instructor Notes Supporting Document Name Address Phone No [...] in the system Hospital Discharge Instructions * Discharge Instructions 2* No Data* Pt to f/u with urology. Pt reports he already has an established urologist. * Discharge Diagnosis* Enlarged Prostate * Important Information* Consult your physician or return to the Emergency Department immediately if worse, if not better as expected, or if any problems arise. * Please understand that you have received care only on an emergency basis. If your condition does not improve, you should call your personal physician for follow-up care. If you do not have a physician, you may call the referred physician listed. * If you have questions about your care or these discharge instructions, you may call the Emergency Department. Please take your discharge paperwork with you to any follow-up appointments. * Follow-Up With:* Primary Care Physician * Sales Clerk Food * Urologist * Activity Level* As tolerated, unrestricted * Diet* Regular * Prescriptions Given Via:* N/A * Patient Teaching* Patient education provided * Disease Process Reason for Visit Reason for Visit Urinary retention
--- NOTE | 2019-07-20 18:57 | NUR ---
report given to Celestine ESPAÑA
[2019-07-20] MEDS ORDERED: BUSPIRONE HCL15 MG PO (19:22)
[2019-07-20] MEDS ORDERED: LISINOPRIL20 MG PO (19:22)
[2019-07-20] MEDS ORDERED: LAXATIVE PEG 3510 GM PO (19:22)
[2019-07-20] MEDS ORDERED: TRAZODONE HCL100 MG PO (19:22)
[2019-07-20] MEDS ORDERED: LEVOTHYROXINE25 MCG PO (19:22)
[2019-07-20] MEDS ORDERED: ALEVE220 MG PO (19:23)
[2019-07-20 22:00] VITALS: BP 118/55
[2019-07-20] MEDS ORDERED: SODIUM CHLORIDE 0.9% 250ML 250 ML ONE (22:47)
[2019-07-20] MEDS: TRAZODONE HCL 50 MG TAB PO PRN (23:46)
[2019-07-21] VITALS (9 sets, daily range): BP systolic 99–124; BP diastolic 58–69
[2019-07-21] MEDS ORDERED: METFORMIN HCL500 MG PO (05:11)
[2019-07-21] MEDS: PIPER-TAZ 3.375 GM 50 ML IV SCH ×4 (05:18→23:00)
[2019-07-21 05:21] LABS: BASOPHILS # (AUTO) 0.1 (0.0-0.1); BASOPHILS % 0.4 % (0.0-1.0); EOSINOPHILS # (AUTO) 0.5 (0.0-0.4); EOSINOPHILS % 3.5 % (0.0-6.0); HEMATOCRIT 38.5 % (38.2-49.6); LYMPHOCYTES # (AUTO) 1.8 (1.0-3.2); LYMPHOCYTES % 13.3 % (18.0-39.1); MEAN CORPUSCULAR HEMOGLOBIN 30.2 pg (28-32); MEAN CORPUSCULAR VOLUME 91.4 fL (81-99); MONOCYTES # (AUTO) 1.3 (0.2-0.8); MONOCYTES % 9.4 % (4.4-11.3); NEUTROPHILS # (AUTO) 9.9 (2.1-6.9); NEUTROPHILS % 72.7 % (38.7-80.0); PLATELET COUNT 149 x10e3/uL (140-360); RED BLOOD COUNT 4.21 x10e6/uL (4.3-5.7)
[2019-07-21 05:54] LABS: ALBUMIN 2.8 g/dL (3.5-5.0); ALBUMIN/GLOBULIN RATIO 0.9 (0.8-2.0); ANION GAP 11.5 mmol/L (8-16); CALCIUM 8.1 mg/dL (8.4-10.2); CREATININE, SERUM 2.09 mg/dL (0.72-1.25); POTASSIUM 4.5 mmol/L (3.5-5.1)
[2019-07-21 05:57] LABS: HEMOGLOBIN 12.7 g/dL (14.0-18.0)
--- NOTE | 2019-07-21 08:00 | NUR ---
H&P cc: dehydration HPI: 84yoM, PCP , developed sepsis due to UTI, with JEFFERY and dehydration. PMH: Hypothyrodism, HTN, DM2, urinary retention s;p de los santos 05/2019 PSHx: unknown Allergies; see emr FH/SH; ; no etoh; 10 cigars daily meds;see MAR ROS; no f/c/s/TIWARI/cp/sob/skin rash/back pain/dizziness/confusion/focal limb weakness v/s; revd PE: tired appearing anicteric ns1s2 mod bs soft nt nd [place] in place no e/t skin dry n. affect a&ox3; mccormick labs/meds revd A/P: Sepsis due to UTI- IV zosyn Complicated due to indwelling de los santos - IV zosyn CHronic urinary retention- de los santos; urology consult JEFFERY- rehydrate; hold aceI and naproxen Cholelithiasis-f/u outpt DIverticulosis - high fiber diet Left nephrolithiasis- rehydrate DM2- hab1c/lipids Hypothyroidism- cont synthroid Prop: scd DIspo: f/u labs; Pranav Del Valle MD, PhD.
[2019-07-21] MEDS: LEVOTHYROXINE SODIUM 25 MCG TABLET PO SCH (09:20)
--- NOTE | 2019-07-21 21:13 | NUR ---
Resting in bed. No s/s of acute distress noted. Side rails upx2, call light within reach. Report to be given to oncoming nurse.
--- NOTE | 2019-07-21 22:04 | Consultation ---
DATE OF CONSULTATION: 07/21/2019 Urology Consultation REASON FOR CONSULTATION: Urinary retention. HISTORY OF PRESENT ILLNESS: Tony Deal is an 84-year-old man, who May 19 had severe pains and urinary retention. He went to the emergency room here where he lives, which is [place] hour drive from his area and he had a Hernandez catheter placed. The patient eventually followed up with a urologist in [place]. The urologist removed his Hernandez catheter. The patient had the Hernandez catheter placed due to inability to void. The patient denies previous urolithiasis, urinary tract infection, no prior urological evaluation. The patient apparently new to this area due to fact that his daughter lives here. PAST MEDICAL AND SURGICAL HISTORY: 1. Status post bilateral inguinal hernia with mesh. 2. Status post appendectomy. 3. Status post tonsillectomy. 4. Diabetes mellitus. 5. Hypertension. 6. Smoker. CURRENT MEDICATIONS: Please refer to the MAR. ALLERGIES: FOR CURRENT ALLERGIES, PLEASE REFER TO THE MAR. SOCIAL HISTORY: The patient smokes 1/3 pack per day. He denies ethanol or drug use. 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 FAMILY HISTORY: Noncontributory to the active urologic problems. REVIEW OF SYSTEMS: Discussed as above in history of present illness, past medical history, otherwise negative for all systems. PHYSICAL EXAMINATION: GENERAL: A healthy-appearing 84-year-old man walking around the room, in no apparent distress. VITAL SIGNS: He is currently afebrile. Vital signs are currently stable. ABDOMEN: Soft, nondistended, and nontender without costovertebral angle tenderness. Kidneys are not palpable without hepatosplenomegaly. No obvious evidence of hernia. GENITOURINARY: Testes descended bilaterally. The patient has a circumcised male phallus, which was not fully circumcised with post circumcision adhesions circumferentially. He has a Hernandez catheter in place draining relatively clear urine out. LABORATORY STUDIES: Reviewed. The patient's creatinine [place] 2[place] [address], hemoglobin 12.7, platelets are 149, 000. Urine culture is pending. ASSESSMENT: 1. Urinary retention. 2. Chronic Hernandez catheter. 3. Leukocytosis. 4. Anemia. 5. Hyponatremia that has improved. 6. Acute renal failure, that is improving. 7. Hypocalcemia. 8. Urinary tract infection. 9. A 2 mm left lower pole stone on the CT. 10. Gallstones. 11. Atrophic testes. 12. Post circumcision adhesions. PLAN: 1. I am awaiting his final urine culture sensitivity. 2. The patient needs a transurethral resection of prostate along with cystoscopy and retrograde to ensure that his urine culture is negative. 3. Ongoing urological followup is a must. The patient's small kidney stone deserves metabolic stone workup, but not any intervention at this time. Ongoing urological followup is a must to ensure that the stone does not grow into one that is clinically significant. Thank you very much for involving us in the care of your patient. We will be happy to follow him along with you as well as an outpatient. Dong Abdalla MD [place]/MODL /[id number] cc: Juan Juarez MD
[2019-07-22] VITALS (7 sets, daily range): BP systolic 129–161; BP diastolic 64–76
[2019-07-22] MEDS: PIPER-TAZ 3.375 GM 50 ML IV SCH ×4 (05:00→23:00)
[2019-07-22] MEDS: LEVOTHYROXINE SODIUM 25 MCG TABLET PO SCH (06:00)
--- NOTE | 2019-07-22 11:24 | NUR ---
IM- progress note O/N see below ROS; no f/c/s/TIWARI/cp/sob/skin rash/back pain/dizziness/confusion/focal limb weakness v/s; revd PE: tired appearing anicteric ns1s2 mod bs soft nt nd [place] in place no e/t skin dry n. affect a&ox3; mccormick labs/meds revd A/P: Sepsis due to UTI- IV zosyn Complicated due to indwelling de los santos - IV zosyn CHronic urinary retention- de los santos; urology consult JEFFERY- rehydrate; hold aceI and naproxen Cholelithiasis-f/u outpt DIverticulosis - high fiber diet Left nephrolithiasis- rehydrate DM2- hab1c/lipids Hypothyroidism- cont synthroid BPH- will need TURP Prop: scd DIspo: f/u labs; 5-9 leukocytosis improving; renal fn improving; check labs this am. Pranav Del Valle MD, PhD.
--- NOTE | 2019-07-22 14:00 | NUR ---
urine sent to lab
--- NOTE | 2019-07-22 19:21 | NUR ---
walking rounds complete, pt stable at end of shift, report given to oncoming nurse.
--- NOTE | 2019-07-22 19:25 | NUR ---
Patient received sitting up in bed. AAO x 4. Patient had no complaints of pain. Respirations even and non-labored. Fall precautions implemented. Hernandez catheter draining light joana urine. Patient instructed to call for assistance when needed. Call light within reach.
[2019-07-22] MEDS: ZOLPIDEM TARTRATE 5 MG TAB PO PRN (23:24)
[2019-07-23] VITALS (7 sets, daily range): BP systolic 140–172; BP diastolic 71–88
[2019-07-23] MEDS: PIPER-TAZ 3.375 GM 50 ML IV SCH ×3 (04:57→22:15)
--- NOTE | 2019-07-23 05:24 | NUR ---
IM- progress note O/N see below ROS; no f/c/s/TIWARI/cp/sob/skin rash/back pain/dizziness/confusion/focal limb weakness v/s; revd PE: tired appearing anicteric ns1s2 mod bs soft nt nd [place] in place no e/t skin dry n. affect a&ox3; mccormick labs/meds revd A/P: Sepsis due to UTI- IV zosyn Complicated due to indwelling de los santos - IV zosyn CHronic urinary retention- de los santos; urology consult JEFFERY- rehydrate; hold aceI and naproxen Cholelithiasis-f/u outpt DIverticulosis - high fiber diet Left nephrolithiasis- rehydrate DM2- hab1c/lipids Hypothyroidism- cont synthroid BPH- will need TURP Prop: scd DIspo: f/u labs; 5-9 leukocytosis improving; renal fn improving; check labs this am. 5-10 check labs; f/u cultures Pranav Del Valle MD, PhD.
[2019-07-23] MEDS: LEVOTHYROXINE SODIUM 25 MCG TABLET PO SCH (06:28)
[2019-07-23 06:38] LABS: BASOPHILS # (AUTO) 0.1 (0.0-0.1); BASOPHILS % 0.8 % (0.0-1.0); EOSINOPHILS # (AUTO) 0.6 (0.0-0.4); EOSINOPHILS % 5.6 % (0.0-6.0); HEMATOCRIT 41.8 % (38.2-49.6); HEMOGLOBIN 13.5 g/dL (14.0-18.0); LYMPHOCYTES # (AUTO) 2.2 (1.0-3.2); LYMPHOCYTES % 21.6 % (18.0-39.1); MEAN CORPUSCULAR HEMOGLOBIN 30.3 pg (28-32); MEAN CORPUSCULAR HGB CONC 32.3 g/dL (31-35); MEAN CORPUSCULAR VOLUME 93.7 fL (81-99); MONOCYTES # (AUTO) 0.9 (0.2-0.8); MONOCYTES % 9.5 % (4.4-11.3); NEUTROPHILS # (AUTO) 6.1 (2.1-6.9); NEUTROPHILS % 61.7 % (38.7-80.0); PLATELET COUNT 189 x10e3/uL (140-360); RED BLOOD COUNT 4.46 x10e6/uL (4.3-5.7); RED CELL DISTRIBUTION WIDTH 13.6 % (11.7-14.4)
--- NOTE | 2019-07-23 07:00 | NUR ---
Walking rounds done. Patient resting comfortably. BSSR given to oncoming nurse regarding patient's status. .
[2019-07-23 07:05] LABS: ANION GAP 11.3 mmol/L (8-16); CALCIUM 8.2 mg/dL (8.4-10.2); CREATININE, SERUM 1.23 mg/dL (0.72-1.25); POTASSIUM 4.3 mmol/L (3.5-5.1)
[2019-07-23] MEDS: ONDANSETRON HCL INJ 2MG/ML 2ML 2 MG/ML VIAL IV PRN ×2 (07:55→16:07)
--- NOTE | 2019-07-23 15:05 | Consultation ---
DATE OF CONSULTATION: 07/23/2019 INFECTIOUS DISEASE CONSULT REASON FOR CONSULTATION: Sepsis. Thank you, Dr. Del Valle, for asking me to see this patient. HISTORY OF PRESENT ILLNESS: The patient is an 84-year-old man, who was referred for sepsis. He presented on 07/20/2019 with nausea, vomiting, lower abdominal discomfort, generalized weakness and dizziness. The patient has had chills. He has indwelling Hernandez catheter placed in May 2019 at [facility] following hospitalization for urine retention. At triage, he was noted to have temperature of 98.8 degrees Fahrenheit, pulse rate 78, respiratory rate 16, blood pressure 148/68, and oxygen saturation 99% on room air. Initial laboratory studies showed blood leukocyte count of 21,550 with 85.3% neutrophils, BUN 48, creatinine 3.69 and abnormal urinalysis. SARS-CoV-[address] scan of the abdomen and pelvis showed left lower pole nonobstructive renal calculus, diverticulosis without diverticulitis, and cholelithiasis without evidence of cholecystitis. PAST MEDICAL HISTORY: Diabetes mellitus type 2, hypertension, hypothyroidism. PAST SURGICAL HISTORY: Tonsillectomy, appendectomy, and bilateral inguinal hernia repair. ALLERGIES: SULFA. MEDICATIONS: See MAY. Current antibiotic is Zosyn 3.375 g IV piggyback q.6 hours. FAMILY HISTORY Prostate cancer: Father. SOCIAL HISTORY Tobacco: The patient is a current everyday smoker. Alcohol: None. REVIEW OF SYSTEMS: As per history of present illness. The patient feels much better since admission and management. He still has generalized weakness, but denies fever, chills, cough, shortness of breath and diarrhea. PHYSICAL EXAMINATION: GENERAL: No acute distress and does not appear toxic. VITAL SIGNS: T-max 98.4, pulse rate 63, respiratory rate 20, blood pressure 165/81, weight 157 pounds. HEENT: Normocephalic and atraumatic. There is no icterus or injection of conjunctivae. There is no ear or nasal discharge. There is moist oral mucosa. There is no pharyngeal erythema or exudate. NECK: Supple. No JVD or meningismus. LUNGS: Clear to auscultation bilaterally. HEART: Normal S1 and S2. Regular. ABDOMEN: Soft with mild suprapubic tenderness. No rebound tenderness. EXTREMITIES: No edema, clubbing, or cyanosis. SKIN: No acute erythema. CONFERENCE SERVICES COORDINATOR: Awake, alert, and oriented to person, place, and time. Nonfocal. LABORATORY AND DIAGNOSTICS: WBC 9940, hemoglobin 13.5, platelets 189,000, neutrophils 61.7, lymphocytes 21.6, monocytes 9.5, eosinophils 5.6, basophils 0.8. BUN 18, creatinine 1.23. Blood glucose 105. Blood culture showed no growth. Urine culture is growing gram-negative bacillus. IMPRESSION: 1. Urinary tract infection with sepsis due to gram-negative rods. 2. Urinary retention. 3. Chronic indwelling Hernandez catheter. 4. Tobacco use disorder. PLAN: 1. Await urine isolate identification and sensitivity. 2. Reduce Zosyn to 3.375 g IV piggyback q.8 hours. 3. Urology input has been noted. 4. Smoking cessation counseling was provided to the patient. MD BELINDA Arteaga/KAL /[id number] MTDD
--- NOTE | 2019-07-23 19:30 | NUR ---
Patient received lying in bed. No acute distress noted. Hernandez catheter draining clear light joana urine. Safety measures in place. Call light within reach.
[2019-07-23] MEDS: ZOLPIDEM TARTRATE 5 MG TAB PO PRN (22:00)
[2019-07-24] VITALS (7 sets, daily range): BP systolic 140–165; BP diastolic 60–85
[2019-07-24] MEDS: TRAZODONE HCL 50 MG TAB PO PRN ×2 (03:20→21:59)
[2019-07-24] MEDS: LEVOTHYROXINE SODIUM 25 MCG TABLET PO SCH (06:00)
[2019-07-24] MEDS: PIPER-TAZ 3.375 GM 50 ML IV SCH ×3 (06:39→22:05)
--- NOTE | 2019-07-24 07:00 | NUR ---
Received patient lying in bed with eyes closed. Respiration even and unlabored without SOB. Call light in reach.
--- NOTE | 2019-07-24 07:00 | NUR ---
Patient resting comfortably. Shift report given to oncoming nurse regarding patient's status.
[2019-07-24] MEDS: ONDANSETRON HCL INJ 2MG/ML 2ML 2 MG/ML VIAL IV PRN ×2 (08:42→17:59)
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
--- NOTE | 2019-07-24 10:57 | NUR ---
IM- progress note O/N see below ROS; no f/c/s/TIWARI/cp/sob/skin rash/back pain/dizziness/confusion/focal limb weakness v/s; revd PE: tired appearing anicteric ns1s2 mod bs soft nt nd [place] in place no e/t skin dry n. affect a&ox3; mccormick labs/meds revd A/P: Sepsis due to UTI- IV zosyn Alcaligenes faecalis UTI- iv abx; Complicated due to indwelling de los santos - IV zosyn CHronic urinary retention- de [place] sant[place]; urology consult JEFFERY- rehydrate; hold aceI and naproxen Cholelithiasis-f/u outpt DIverticulosis - high fiber diet Left nephrolithiasis- rehydrate DM2- hab1c/lipids Hypothyroidism- cont synthroid BPH- will need TURP Prop: scd DIspo: f/u labs; 5-9 leukocytosis improving; renal fn improving; check labs this am. 5-10 check labs; f/u cultures 5-11 Alcaligenes faecalis UTI- cont iv abx per ID; f/uurology plan; d/c planning; Pranav Del Valle MD, PhD.
[2019-07-24] MEDS: POLYETHYLENE GLYCOL 3350 17 GM PACK PO PRN (11:53)
[2019-07-24 12:31] LABS: ANION GAP 14.6 mmol/L (8-16); CREATININE, SERUM 1.2 mg/dL (0.72-1.25); POTASSIUM 4.6 mmol/L (3.5-5.1)
[2019-07-24] MEDS: ACETAMINOPHEN 325 MG TAB PO PRN (13:52)
--- NOTE | 2019-07-24 19:03 | NUR ---
Report given to slot shift supervisor. Respiration even and unlabored without SOB. Call light in reach.
--- NOTE | 2019-07-24 19:33 | NUR ---
Patient received lying in bed. AAO x 3. No acute distress noted. Fall precautions implemented. Patient instructed to call for assistance when needed. Call light within reach.
[2019-07-25] VITALS (8 sets, daily range): BP systolic 113–140; BP diastolic 65–76
[2019-07-25] MEDS: PIPER-TAZ 3.375 GM 50 ML IV SCH ×3 (06:19→21:21)
[2019-07-25] MEDS: LEVOTHYROXINE SODIUM 25 MCG TABLET PO SCH (06:19)
[2019-07-25] MEDS: POLYETHYLENE GLYCOL 3350 17 GM PACK PO PRN (10:13)
--- NOTE | 2019-07-25 11:40 | NUR ---
IM- progress note O/N see below ROS; no f/c/s/TIWARI/cp/sob/skin rash/back pain/dizziness/confusion/focal limb weakness v/s; revd PE: tired appearing anicteric ns1s2 mod bs soft nt nd [place] in place no e/t skin dry n. affect a&ox3; mccormick labs/meds revd A/P: Sepsis due to UTI- IV zosyn Alcaligenes faecalis UTI- iv abx; Complicated due to indwelling de [place] sant[place] - IV zosyn CHronic urinary retention- de [place] santos; urology consult JEFFERY- rehydrate; hold aceI and naproxen Cholelithiasis-f/u outpt DIverticulosis - high fiber diet Left nephrolithiasis- rehydrate DM2- hab1c/lipids Hypothyroidism- cont synthroid BPH- will need TURP Prop: scd DIspo: f/u labs; 07-21 leukocytosis improving; renal fn improving; check labs this am. - check labs; f/u cultures - Alcaligenes faecalis UTI- cont iv abx per ID; f/uurology plan; d/c planning; 07-24 COVID19 reordered; TURP pending; Pranav Del Valle MD, PhD.
[2019-07-25] MEDS: ACETAMINOPHEN 325 MG TAB PO PRN (13:41)
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
--- NOTE | 2019-07-25 15:44 | NUR ---
SPOKE WITH PT, HE STATES FEELS HIS SITUATION IS MORE LIKE PTSD AND SITUATIONAL, GAVE DISTRACTION AND RELAXATION TECHNIQUES TO BE ABLE TO ASSIST TO DIVERT HIS MIND. PREFORMED PHQ9 FILED IN CHART SCORED A [address] BOOKER KNOW RESULTS.
[2019-07-25] MEDS ORDERED: TRAZODONE HCL 50 MG TAB PO SCH (21:00)
[2019-07-25] MEDS: AMITRIPTYLINE HCL 25 MG TAB PO SCH (21:21)
[2019-07-26] VITALS (8 sets, daily range): BP systolic 106–143; BP diastolic 59–76
[2019-07-26] MEDS: PIPER-TAZ 3.375 GM 50 ML IV SCH ×3 (06:12→21:33)
[2019-07-26] MEDS: LEVOTHYROXINE SODIUM 25 MCG TABLET PO SCH (06:12)
[2019-07-26] MEDS: VENLAFAXINE HCL 37.5 MG TAB PO SCH ×2 (08:40→21:33)
[2019-07-26] MEDS ORDERED: VENLAFAXINE HCL 37.5 MG TAB PO SCH (09:00)
--- NOTE | 2019-07-26 13:51 | NUR ---
ASSESSMENT: Spiritual concern Pt hopeful concerning illness and his future. Pt states his mental/emotional outlook is "twofold better than the other day." Pt states he hopes to go home soon but "not too soon." Pt states he would like to sell his property and "live in a small house" near his children after he recovers. Pt appreciative of the help of hospital staff. Intervention: Provided supportive listening. Facilitated identification of emotions. Outcome: Pt expressed appreciation for support during hospitalization. Will continue to follow as able. DONALD SKINNER Build Master Spiritual Care Department O: [phone]
[2019-07-26] MEDS: ONDANSETRON HCL INJ 2MG/ML 2ML 2 MG/ML VIAL IV PRN ×2 (14:42→21:33)
--- NOTE | 2019-07-26 19:10 | NUR ---
Received patient awake, not in distress, call light within easy reach, advised to call anytime when needed. Hernandez catheter to leg bag draining yellow urine output Will continue to monitor patient.
[2019-07-26] MEDS: DOCUSATE SODIUM 100 MG CAP PO PRN (21:33)
[2019-07-26] MEDS: TRAZODONE HCL 50 MG TAB PO SCH (21:33)
[2019-07-26] MEDS: AMITRIPTYLINE HCL 25 MG TAB PO SCH (21:33)
[2019-07-27] VITALS (8 sets, daily range): BP systolic 131–159; BP diastolic 70–76
[2019-07-27 05:18] LABS: BASOPHILS # (AUTO) 0.1 (0.0-0.1); EOSINOPHILS # (AUTO) 0.6 (0.0-0.4); EOSINOPHILS % 5.3 % (0.0-6.0); HEMATOCRIT 38.7 % (38.2-49.6); HEMOGLOBIN 12.8 g/dL (14.0-18.0); LYMPHOCYTES # (AUTO) 2.7 (1.0-3.2); LYMPHOCYTES % 23.8 % (18.0-39.1); MEAN CORPUSCULAR HEMOGLOBIN 30.3 pg (28-32); MEAN CORPUSCULAR HGB CONC 33.1 g/dL (31-35); MEAN CORPUSCULAR VOLUME 91.5 fL (81-99); MONOCYTES # (AUTO) 1.1 (0.2-0.8); MONOCYTES % 9.6 % (4.4-11.3); NEUTROPHILS # (AUTO) 6.7 (2.1-6.9); NEUTROPHILS % 58.5 % (38.7-80.0); PLATELET COUNT 215 x10e3/uL (140-360); RED BLOOD COUNT 4.23 x10e6/uL (4.3-5.7); RED CELL DISTRIBUTION WIDTH 13.4 % (11.7-14.4)
[2019-07-27 05:42] LABS: ANION GAP 12.7 mmol/L (8-16); CALCIUM 8.1 mg/dL (8.4-10.2); CREATININE, SERUM 1.27 mg/dL (0.72-1.25); POTASSIUM 3.7 mmol/L (3.5-5.1)
[2019-07-27] MEDS: LEVOTHYROXINE SODIUM 25 MCG TABLET PO SCH (05:42)
[2019-07-27] MEDS: ONDANSETRON HCL INJ 2MG/ML 2ML 2 MG/ML VIAL IV PRN (05:42)
[2019-07-27] MEDS: PIPER-TAZ 3.375 GM 50 ML IV SCH ×3 (05:42→17:27)
--- NOTE | 2019-07-27 07:04 | NUR ---
bedside rounding done with RN, call light within easy reach
[2019-07-27] MEDS: VENLAFAXINE HCL 37.5 MG TAB PO SCH ×2 (09:24→20:46)
[2019-07-27] MEDS ORDERED: ONDANSETRON HCL INJ 2MG/ML 2ML 2 MG/ML VIAL IV PRN (09:45)
[2019-07-27] MEDS ORDERED: ONDANSETRON HCL 4 MG ORAL DISINTEGRATING TAB PO PRN (10:00)
--- NOTE | 2019-07-27 15:28 | NUR ---
Nutrition Screen Note RD Recommendation for Physician: - Continue current diet Plan of Care: RD following, monitoring for tolerance and adequacy Nutrition reason for involvement: LOS Primary Diagnose(s): UTI, renal failure, urinary retention PMH: hernia repair, DM, HTN, appendectomy Ht: 70 in Wt: 157.56 lb BMI: 22.6 kg/m2 IBW: [address] Assessment: (07/26) 84 YOM admitted for UTI, renal failure, and urinary retention. Pt seen today for LOS. Pt reports good appetite and intake, states "I eat everything y'all send me". Pt denies any N/V/C/D. Pt denies any wt loss, reports UBW of 162# 1 months ago- no significant change noted. Pt with no questions or concerns at time of visit. Chart reviewed. Labs and meds reviewed. Will continue to monitor. Current Diet: 1800 ADA Malnutrition Evaluation (07/27/19) The patient does not meet criteria for a specified degree of malnutrition at this time. Will re-evaluate at follow-up as appropriate. Diet Education Needs Assessment: Diet education not indicated. Diet tolerance: tolerating po Nutrition Care Level: low Signed: Patricia Matt RD, LD, [facility]
--- NOTE | 2019-07-27 15:40 | NUR ---
IM- progress note O/N see below ROS; no f/c/s/TIWARI/cp/sob/skin rash/back pain/dizziness/confusion/focal limb weakness v/s; revd PE: tired appearing anicteric ns1s2 mod bs soft nt nd [place] in place no e/t skin dry n. affect a&ox3; mccormick labs/meds revd A/P: Sepsis due to UTI- IV zosyn Alcaligenes faecalis UTI- iv abx; Complicated due to indwelling de los santos - IV zosyn CHronic urinary retention- de los santos; urology consult JEFFERY- rehydrate; hold aceI and naproxen Cholelithiasis-f/u outpt DIverticulosis - high fiber diet Left nephrolithiasis- rehydrate DM2- hab1c/lipids Hypothyroidism- cont synthroid BPH- will need TURP Prop: scd DIspo: f/u labs; 07-21 leukocytosis improving; renal fn improving; check labs this am. 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 07-26 cont care; Pranav Del Valle MD, PhD.
[2019-07-27] MEDS ORDERED: SENNOSIDES 8.6 MG TAB PO PRN (18:15)
[2019-07-27] MEDS: DOCUSATE SODIUM 100 MG CAP PO PRN (18:38)
[2019-07-27] MEDS: TRAZODONE HCL 50 MG TAB PO SCH (20:46)
[2019-07-27] MEDS: AMITRIPTYLINE HCL 25 MG TAB PO SCH (20:47)
[2019-07-28] VITALS (8 sets, daily range): BP systolic 126–143; BP diastolic 66–76
[2019-07-28 05:28] LABS: BASOPHILS # (AUTO) 0.1 (0.0-0.1); BASOPHILS % 0.9 % (0.0-1.0); EOSINOPHILS # (AUTO) 0.6 (0.0-0.4); EOSINOPHILS % 5.4 % (0.0-6.0); HEMATOCRIT 39.2 % (38.2-49.6); HEMOGLOBIN 12.8 g/dL (14.0-18.0); LYMPHOCYTES # (AUTO) 2.2 (1.0-3.2); LYMPHOCYTES % 21.3 % (18.0-39.1); MEAN CORPUSCULAR HEMOGLOBIN 29.8 pg (28-32); MEAN CORPUSCULAR HGB CONC 32.7 g/dL (31-35); MEAN CORPUSCULAR VOLUME 91.2 fL (81-99); NEUTROPHILS # (AUTO) 6.4 (2.1-6.9); PLATELET COUNT 214 x10e3/uL (140-360); RED CELL DISTRIBUTION WIDTH 13.3 % (11.7-14.4)
[2019-07-28 05:49] LABS: ANION GAP 11.2 mmol/L (8-16); CALCIUM 8.4 mg/dL (8.4-10.2); CREATININE, SERUM 1.48 mg/dL (0.72-1.25); POTASSIUM 4.2 mmol/L (3.5-5.1)
[2019-07-28] MEDS: PIPER-TAZ 3.375 GM 50 ML IV SCH ×4 (05:56→17:41)
[2019-07-28] MEDS: LEVOTHYROXINE SODIUM 25 MCG TABLET PO SCH (05:56)
--- NOTE | 2019-07-28 06:48 | NUR ---
IM- progress note O/N see below ROS; no f/c/s/TIWARI/cp/sob/skin rash/back pain/dizziness/confusion/focal limb weakness v/s; revd PE: tired appearing anicteric ns1s2 mod bs soft nt nd [place] in place no e/t skin dry n. affect a&ox3; mccormick labs/meds revd A/P: Sepsis due to UTI- IV zosyn Alcaligenes faecalis UTI- iv abx; Complicated due to indwelling de los santos - IV zosyn CHronic urinary retention- de los santos; urology consult JEFFERY- rehydrate; hold aceI and naproxen Cholelithiasis-f/u outpt DIverticulosis - high fiber diet Left nephrolithiasis- rehydrate DM2- hab1c/lipids Hypothyroidism- cont synthroid BPH- will need TURP Prop: scd DIspo: f/u labs; 07-21 leukocytosis improving; renal fn improving; check labs this am. 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 07-26 cont care; 07-27 give some fluids for JEFFERY; sx pending; Pranav Del Valle MD, PhD.
--- NOTE | 2019-07-28 07:00 | NUR ---
BEDSIDE SHIFT REPORT RECEIVED FROM THE SAFE EXPERT RN. PT IS ON NPO. EDUCATED PT ABOUT FALL PRECAUTIONS. PT VERBALIZED UNDERSTANDING. CALL LIGHT WITH IN EASY REACH. INSTRUCTED PT TO USE CALL LIGHT FOR ALL THE NEEDS. BED IS LOW AND LOCKED. SIDE RAILS X2. PT DENIES NEEDS AT THIS TIME.
[2019-07-28] MEDS: SODIUM CHLORIDE 0.9% 1000ML 1,000 ML IV SCH (07:33)
--- NOTE | 2019-07-28 08:20 | NUR ---
PT OFF UNIT FOR PROCEDURE IN SAFE CONDITION.
[2019-07-28] MEDS ORDERED: B&O 60MG R/S 60 MG SUPP PR ONE (08:26)
[2019-07-28] MEDS ORDERED: IOPAMIDOL 300MG/ML 50ML INFUS..BTL IV ONE (08:27)
[2019-07-28] MEDS ORDERED: DOCUSATE SODIUM LIQD 100 MG/10 ML UDC NG SCH (09:00)
[2019-07-28] MEDS ORDERED: BACITRACIN ZINC 15 GM OINT ONE (09:19)
[2019-07-28] MEDS ORDERED: ACETAMINOPHEN/CODEINE 300MG - 30MG TAB PO PRN (11:15)
[2019-07-28] MEDS ORDERED: B&O 60MG R/S 60 MG SUPP PR PRN (11:15)
--- NOTE | 2019-07-28 11:30 | NUR ---
PT RECEIVED FROM PACU. AAOX3. CONTINUOUS BLADDER IRRIGATION. PINK COLOR URINE NOTED. PT DENIES NEEDS AT THIS TIME.
[2019-07-28] MEDS: BACITRACIN ZINC 15 GM OINT TOP SCH ×2 (11:44→15:33)
[2019-07-28] MEDS: VENLAFAXINE HCL 37.5 MG TAB PO SCH ×2 (11:44→21:01)
[2019-07-28] MEDS: PHENAZOPYRIDINE HCL 100 MG TAB PO SCH ×2 (13:11→17:41)
--- NOTE | 2019-07-28 17:00 | NUR ---
DR. STRINGER AT BEDSIDE. NEW ORDER FOR PRN BLADDER IRRIGATION
[2019-07-28] MEDS ORDERED: SEVOFLURANE INHAL SOLN 250 ML PEN BTL ONE (18:10)
[2019-07-28] MEDS ORDERED: LIDOCAINE HCL 2% LOCAL INJ 5 ML SDV VIAL INJ ONE (18:10)
[2019-07-28] MEDS ORDERED: GENTAMICIN SULFATE 40 MG/ML 2 ML VIAL ONE (18:10)
[2019-07-28] MEDS ORDERED: ONDANSETRON HCL INJ 2MG/ML 2ML 2 MG/ML VIAL ONE (18:10)
[2019-07-28] MEDS ORDERED: PROPOFOL IV EMULSION 10 MG/ML 20 ML VIAL ONE (18:10)
--- NOTE | 2019-07-28 18:50 | NUR ---
BEDSIDE SHIFT REPORT GIVEN TO THE ARMED SECURITY OFFICER RN. PT DENIED FURTHER NEEDS.
[2019-07-28] MEDS ORDERED: FENTANYL CITRATE/PF 100MCG/2 ML INJ ONE (19:50)
[2019-07-28] MEDS: AMITRIPTYLINE HCL 25 MG TAB PO SCH (21:01)
[2019-07-28] MEDS: TRAZODONE HCL 50 MG TAB PO SCH (21:01)
[2019-07-29] VITALS (7 sets, daily range): BP systolic 112–131; BP diastolic 57–68
[2019-07-29] MEDS: PIPER-TAZ 3.375 GM 50 ML IV SCH ×4 (01:47→17:00)
--- NOTE | 2019-07-29 05:06 | NUR ---
D/C summary Principal Dx: Sepsis due to UTI- IV zosyn Alcaligenes faecalis UTI- iv abx; Complicated due to indwelling ernst - IV zosyn CHronic urinary retention- ernst; urology consult JEFFERY- rehydrate; hold aceI and naproxen Cholelithiasis-f/u outpt DIverticulosis - high fiber diet Left nephrolithiasis- rehydrate BPH - s/p TURP; Secondary Dx: DM2- hab1c/lipids Hypothyroidism- cont synthroid BPH- will need TURP Prop: scd DIspo: f/u labs; 5 leukocytosis improving; renal fn improving; check labs this am. 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 07-26 cont care; 15 give some fluids for JEFFERY; sx pending; 16 s/p TURP; bladder irrigations; d/c home f/u PCP 2-4 days and urology 2 weeks stable d/c>35mins Pranav Del Valle MD, PhD.
[2019-07-29] MEDS: LEVOTHYROXINE SODIUM 25 MCG TABLET PO SCH (05:36)
[2019-07-29] MEDS: BACITRACIN ZINC 15 GM OINT TOP SCH ×3 (05:36→15:22)
--- NOTE | 2019-07-29 07:00 | NUR ---
BEDSIDE SHIFT REPORT RECEIVED FROM THE POWDER COATER RN. EDUCATED PT ABOUT FALL PRECAUTIONS. PT VERBALIZED UNDERSTANDING. CALL LIGHT WITH IN EASY REACH. INSTRUCTED PT TO USE CALL LIGHT FOR ALL THE NEEDS. BED IS LOW AND LOCKED. SIDE RAILS X2. BED ALARM IS ON. PT DENIES NEEDS AT THIS TIME.
[2019-07-29] MEDS: VENLAFAXINE HCL 37.5 MG TAB PO SCH ×2 (08:13→20:50)
[2019-07-29] MEDS: PHENAZOPYRIDINE HCL 100 MG TAB PO SCH ×3 (08:13→17:49)
[2019-07-29] MEDS: SODIUM CHLORIDE 0.9% 1000ML 1,000 ML IV SCH (08:13)
--- NOTE | 2019-07-29 10:52 | NUR ---
DR. XIE AT BEDSIDE. CLEAR ORANGE URINE NOTED IN SOLIMAN BAG. NO PRN CBI NEEDED PER THE
--- NOTE | 2019-07-29 13:00 | NUR ---
TANYA TO D/C PT PER DR. XIE. PAGED DR. BOOKER AND INFORMED THE SAME. WAITING FOR THE RESPONSE FROM THE
--- NOTE | 2019-07-29 18:00 | NUR ---
PAGED DR. BOOEKR REGARDING PT D/C PER PT REQUEST. WAITING FOR THE RESPONSE FROM THE
--- NOTE | 2019-07-29 19:10 | NUR ---
BEDSIDE SHIFT REPORT GIVEN TO THE FRUIT WASHER RN. PT DENIED FURTHER NEEDS.
--- NOTE | 2019-07-29 19:10 | NUR ---
Patient visited in room during nursing rounds. Patient alert and oriented x3. Ambulatory in room prn. Pt denies any pain or discomfort. Pt aware he will possibly go home tonight (with ernst in place). Urine clear orange in color. S/P TURP on 07/28/19. Call welch within reach.
[2019-07-29] MEDS ORDERED: AMITRIPTYLINE H25 MG PO (20:34)
[2019-07-29] MEDS ORDERED: TRAZODONE HCL50 MG PO (20:34)
[2019-07-29] MEDS ORDERED: Venlafaxine Hcl PO (20:34)
[2019-07-29] MEDS ORDERED: KEFLEX500 MG PO (20:35)
--- NOTE | 2019-07-29 20:45 | NUR ---
Received call and confirmation from Dr. Del Valle that he will put in discharge orders and sent electronic Rx to patient's own pharmacy ([facility] [place]). Pt aware. Ernst bag changed to leg bag and pt will go home with ernst (as ordered by Dr. Dong Abdalla). Peripheral IV taken out. Pt in stable condition.
[2019-07-29] MEDS: AMITRIPTYLINE HCL 25 MG TAB PO SCH (20:50)
[2019-07-29] MEDS: TRAZODONE HCL 50 MG TAB PO SCH (20:56)
--- NOTE | 2019-07-29 21:15 | NUR ---
Patient signed and was provided copy of discharge papers. Patient aware of d/c instructions on medications and follow up appointments with Dr. Pranav Del Valle and Dr. Dong Abdalla. Pt will go home with sujata (attached to leg bag). Awaiting on daughter (Sheri Ramirez) to arrive at entrance of hospital and then pt will be escorted via wheelchair.
--- NOTE | 2019-07-31 03:45 | Operative Report ---
DATE OF PROCEDURE: 07/28/2019 SURGEON: Dong Abdalla MD PREOPERATIVE DIAGNOSES: 1. Obstructive benign prostatic hyperplasia. 2. Complicated urinary tract infection. POSTOPERATIVE DIAGNOSES: 1. Obstructive benign prostatic hyperplasia. 2. Complicated urinary tract infection. 3. Penile adhesions. 4. Coronal hypospadias. 5. Bladder stones. 6. Cystolitholapaxy. OPERATIONS PERFORMED: 1. Cystourethroscopy with bilateral ureteral catheterization and retrograde ureteropyelography (separate procedure performed for the urinary tract infections). 2. Interpretation of retrograde ureteropyelography. 3. Supervision of fluoroscopy, no radiologist present. 4. Cystourethroscopy with transurethral resection of the prostate (separate procedure performed for the obstructive benign prostatic hyperplasia. ANESTHESIA: General. COMPLICATIONS: None. CLINICAL SUMMARY: Please refer to the consultation from recent hospitalization. The patient has had urinary tract infection treated with culture specific antibiotics. Followup coronavirus test was negative as well. The patient desired to proceed with transurethral resection in order not to be discharged with a Hernandez catheter. He has had a chronic Hernandez catheter for a couple of months and it is quite uncomfortable for him. The patient understands the risks of bleeding, infection, injury to adjacent structures, incontinence, impotence, retrograde ejaculation, need for additional procedures and elected to proceed. OPERATIVE PROCEDURE IN DETAIL: Informed consent was verified. Tony Deal was properly identified and taken to the operating room, placed on the cystoscopy table in supine position. Anesthesia was uneventfully begun. The patient was then carefully gently repositioned, dorsal lithotomy position with all pressure points well padded. His Hernandez catheter was removed. His genitalia were examined. 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 We released all these penile adhesions causing minimal amount of bleeding. The patient's genitalia were then prepared and draped in usual sterile fashion. The cystoscope sheath with the visual obturator in place was atraumatically inserted into the patient's urethra, was guided unremarkable urethra to the normal sphincteric region through the patient's prostate bed, which was significant for visual obstructing BPH and into the patient's bladder. Panendoscopy revealed grade 3 trabeculations with cellule formations. There was also a bladder stone identified. A grasper was then utilized to fragment the stones and we then able to evacuate all of the stone debris and verify this endoscopically. An 8-Persian catheter was used to cannulate each ureter and retrograde ureteral pyelograms were performed. Interpretation of retrograde ureteropyelography contrast was instilled in retrograde fashion bilaterally. There were no tumors, no stones, and no diverticula. Unobstructed drainage was observed bilaterally fluoroscopically. The cystoscope was withdrawn, the resectoscope was atraumatically placed with the obturator in place. We then proceeded with performing transurethral resection of the prostate from the bladder neck tube, but never passed the verumontanum and down the surgical capsule. Wide open prostatic channel was achieved. Pinpoint electrocautery was utilized to achieve hemostasis. All chips were evacuated. This was verified endoscopically. The patient had a continuous irrigation Hernandez catheter placed. It was irrigated to and fro to ensure it worked properly. A belladonna and opium suppository were placed revealing 40 g prostate that is smooth, non-fluctuant without any nodules. The patient was then uneventfully reversed from anesthesia and taken to recovery room in stable condition. There were no complications to the procedure, he tolerated the procedure well. We will proceed with routine postoperative care and ongoing urological followup there. Dong Abdalla MD [place]/[facility] /[id number]
== END 2019-07-29 21:43 | disposition home or self-care (01) | DRG 659 ==
LOC: ER 11:07 → ERHOLD 14:58 → MED/SURG2 22:21 → OBSVTOIN 07-22 11:23
PROVIDERS: ADMIT Internal Medicine; ATTEND Internal Medicine
PROC: BT141ZZ Fluoroscopy of Kidneys, Ureters and Bladder using Low Osmolar Contrast (ICD-10-PCS; 2019-07-28)
PROC: 0VT08ZZ Resection of Prostate, Via Natural or Artificial Opening Endoscopic (ICD-10-PCS; principal; 2019-07-28 09:00)
PROC: 0T788DZ Dilation of Bilateral Ureters with Intraluminal Device, Via Natural or Artificial Opening Endoscopic (ICD-10-PCS; 2019-07-28 09:00)
DX: T83.511A Infection and inflammatory reaction due to indwelling urethral catheter, initial encounter (principal); A41.9 Sepsis, unspecified organism; E87.1 Hypo-osmolality and hyponatremia; N17.9 Acute kidney failure, unspecified; N13.8 Other obstructive and reflux uropathy; N39.0 Urinary tract infection, site not specified; N40.1 Benign prostatic hyperplasia with lower urinary tract symptoms; N21.0 Calculus in bladder; Q55.8 Other specified congenital malformations of male genital organs; Q54.0 Hypospadias, balanic
CPT/HCPCS: 36415; 74176; 74420; 80048; 80053; 81001; 82550; 82553; 82948; 83605; 83690; 84484; 85025; 87040; 87086; 87186; 87635; 88305; 93005; 99284; G0378; J1580; J2001; J2405; J2543; J3010; J7030; J7050